=== PATIENT | male | born 1960 | race African-American/Black ===

== ENCOUNTER 2020-05-29 23:30 | Emergency (ER) | payer BC, MEDICAID ==
[~2020-05-29] VITALS: Ht 182.9 cm; Wt 82.0 kg
[~2020-05-29 23:30] MED LIST: ALLO300T2 PO; ASPI325T85 PO; ATOR10TA69 PO; CARV12.545 PO; ELVI1TAB2 PO; FURO40TA5 PO; LISI-186 PO; OMEP20CA14 PO; POTA10TA2 PO
[2020-05-30 00:55] LABS: BASOPHILS % 0.8 % (0.0-2.0); HEMATOCRIT. 44.6 % (42.0-52.0); HEMOGLOBIN. 14.2 g/dL (14.0-18.0); LYMPHOCYTES % 36.3 % (20.0-50.0); MEAN CORPUSCULAR HEMOGLOBIN 23.6 pg (28.0-32.0); MEAN CORPUSCULAR VOLUME 74.1 fL (80.0-94.0); MEAN PLATELET VOLUME 11.3 fl (7.4-10.4); MONOCYTES % 7.8 % (2.0-8.0); NEUTROPHILS % 48.1 % (40.0-76.0); PLATELET 171 x1000/uL (130-400); RED BLOOD CELL COUNT 6.02 mill/uL (4.7-6.1); RED CELL DISTRIBUTION WIDTH 16.1 % (11.6-14.6)
[2020-05-30 01:00] LABS: CHLORIDE 106 mEq/L (98-107)
[2020-05-30 01:06] LABS: ETHANOL BLOOD < 10 mg/dL
[2020-05-30 01:08] LABS: CLARITY URINE CLEAR (CLEAR); COLOR URINE YELLOW (YELLOW); KETONES URINE NEGATIVE (NEGATIVE); LEUKOCYTE ESTERASE URINE NEGATIVE (NEGATIVE); NITRITE URINE NEGATIVE (NEGATIVE); OCCULT BLOOD URINE NEGATIVE (NEGATIVE); PH URINE 5.5 (4.5-8.0); PROTEIN URINE 1+ (NEGATIVE); SPECIFIC GRAVITY URINE 1.017 (1.005-1.030); UROBILINOGEN URINE 0.2 E.U./dL (0.2-1.0)
[2020-05-30 01:08] LABS: LDL CHOLESTEROL 77 mg/dL (5-100)
[2020-05-30 01:20] LABS: *AMPHETAMINES SCREEN URINE NEGATIVE (NEGATIVE); *BARBITURATES SCREEN URINE NEGATIVE (NEGATIVE); *BENZODIAZEPINES SCREEN URINE NEGATIVE (NEGATIVE); *COCAINE SCREEN URINE NEGATIVE (NEGATIVE)
[2020-05-30 01:21] LABS: CANNABINOID URINE SCREEN PRESUMTIVE POSITIVE (NEGATIVE); METHADONE URINE SCREEN NEGATIVE (NEGATIVE); OPIATES URINE SCREEN NEGATIVE (NEGATIVE); PHENCYCLIDINE URINE SCREEN NEGATIVE (NEGATIVE)
[2020-05-30] MEDS ORDERED: IOHEXOL-350 100 ML BOTTLE ONE (01:29)
[2020-05-30 01:48] LABS: INR 1.2; PROTHROMBIN TIME 12.4 sec (9.6-11.0)
[2020-05-30 05:15] VITALS: BP 123/78
== END 2020-05-30 05:48 | disposition home or self-care (01) ==
LOC: ER 23:30
DX: G45.9 Transient cerebral ischemic attack, unspecified (principal); F10.129 Alcohol abuse with intoxication, unspecified; Y90.0 Blood alcohol level of less than 20 mg/100 ml; I11.0 Hypertensive heart disease with heart failure; I50.9 Heart failure, unspecified
CPT/HCPCS: 36415; 70450; 70496; 70498; 71045; 80053; 80305; 80320; 81003; 83721; 83880; 84484; 85025; 85610; 93005; 99285; Q9967; G0480